=== PATIENT | male | born 1985 ===

== ENCOUNTER 2017-06-18 18:06 | Emergency (ER) | payer SELFPAY ==
[~2017-06-18] VITALS: Ht 180.3 cm; Wt 62.1 kg
[2017-06-18 18:22] VITALS: BP 104/86
== END 2017-06-19 00:33 | disposition left against medical advice (07) ==
LOC: ER 18:07
DX: R19.7 Diarrhea, unspecified (principal); Z53.21 Procedure and treatment not carried out due to patient leaving prior to being seen by health care provider